=== PATIENT | male | born 1975 | race Caucasian/White ===

== ENCOUNTER → 2016-09-16 | Outpatient (CLI) | payer BC ==
[~2016-09-16] MED LIST: ASA CHILDREN'S81 MG PO; CARVEDILOL25 MG PO; COLACE-DPS100 MG PO; LORTAB LIQUID D15 ML PO; OMEPRAZOLE40 MG PO; THERA1 EACH PO; VALSARTAN-HCTZ1 EAC4 PO; ZOFRAN ODT4 MG PO; ZYRTEC DPS10 MG PO
== END | disposition home or self-care (01) ==
LOC: NUE 13:27
DX: Z01.818 Encounter for other preprocedural examination (principal); E66.9 Obesity, unspecified; Z71.3 Dietary counseling and surveillance
CPT/HCPCS: 258